=== PATIENT | female | born 1995 | race Caucasian/White ===

== ENCOUNTER 2016-07-28 21:05 | Emergency (ER) | payer OTHER ==
[~2016-07-28] VITALS: Ht 162.6 cm; Wt 60.5 kg
[2016-07-28 21:07] VITALS: Ht 162.6 cm; Wt 60.5 kg
[2016-07-29] MEDS ORDERED: IBUP-1542 PO (00:27)
[2016-07-29] MEDS ORDERED: HYDR-906 PO (00:27)
[2016-07-29] MEDS ORDERED: BACL10TA PO (00:28)
--- NOTE | 2016-07-29 00:34 | ERD ---
ER Documentation Chief Complaint Date/Time DATE: 07/29/16 TIME: 00:28 Chief Complaint RT LOWER BACK PAIN SHOOTING DOWN RIGHT LEG/NUMBNESS SINCE WEEKEND HPI Patient is a 21-year-old female who presents to the emergency department with right lower back pain radiating down her right leg. She says her symptoms started approximately one week ago but became worse over the past 2 days. Patient is a pain to be sharp, stabbing and shooting down her leg. Patient states her current pain level is a 10 out of 10. Patient states she tried ibuprofen with alleviation of symptoms. She denies any numbness or tingling in her groin area, urinary incontinence, stool incontinence, night pain or IV drug use. Patient denies any trauma or falls. Patient denies any abdominal pain, pelvic pain, pain with urination, vaginal discharge, vaginal bleeding. Patient is able to ambulate without any difficulty. Last menstrual period was on , patient reports irregular periods. ROS All systems reviewed and are negative except as per history of present illness. Medications Home Meds Active Scripts Baclofen* (Baclofen*) 10 Mg Tablet, 10 MG PO Q8, #12 TAB Prov:DEBORAH TENORIO PA-C 07/29/16 Ibuprofen* (Motrin*) 600 Mg Tab, 600 MG PO Q6, #20 TAB Prov:DEBORAH TENORIO PA-C 07/29/16 Hydrocodone/Acetaminophen (Dover 5-325 Tablet) 1 Each Tablet, 1 TAB PO Q6H Y for PAIN, #10 TAB Prov:DEBORAH TENORIO PA-C 07/29/16 PMhx/Soc Medical and Surgical Hx: pt denies Medical Hx, pt denies Surgical Hx History of Surgery: No Anesthesia Reaction: No Hx Neurological Disorder: No Hx Respiratory Disorders: No Hx Cardiac Disorders: No Hx Psychiatric Problems: No Hx Miscellaneous Medical Probl: No Hx Alcohol Use: Yes (occasional) Hx Substance Use: No Hx Tobacco Use: No Smoking Status: Never smoker Physical Exam Vitals Vital Signs Date Time Temp Pulse Resp B/P Pulse Ox O2 Delivery O2 Flow Rate FiO2 07/29/16 00:42 79 16 137/63 98 Room Air 07/28/16 21:07 97.7 95 18 145/74 96 Physical Exam GENERAL: Well-developed, well-nourished female. Appears in no acute distress. HEAD: Normocephalic, atraumatic. EYES: Pupils are equally reactive bilaterally. EOMs grossly intact. No conjunctival erythema. ENT: Moist mucous membranes. No uvula deviation. No kissing tonsils. NECK: Supple. No lymphadenopathy or thyromegaly. No meningismus. LUNG: Clear to auscultation bilaterally. No rhonchi, wheezing, rales or coarse breath sounds. HEART: Regular rate and rhythm. No murmurs, rubs or gallops. ABDOMEN: No scars, ecchymosis or rashes noted. Soft, nontender, and nondistended. Positive bowel sounds in all four quadrants. No rebound tenderness , no guarding. (-) McBurneys point tenderness. No CVA tenderness. BACK: No midline tenderness. Positive tenderness to palpation of right lumbar paraspinal muscles. Positive straight leg test of right leg. Normal active range of motion of back. EXTREMITIES: Equal pulses bilaterally. No peripheral clubbing, cyanosis or edema. No unilateral leg swelling. NEUROLOGIC: Alert and oriented. Moving all four extremities without any difficulty. Normal speech. Steady gait. SKIN: Normal color. Warm and dry. No rashes or lesions. Procedures/MDM MEDICAL DECISION MAKING: This is a 21-year-old female who presents with right lower back pain radiating down her leg. Patient described the pain to be sharp, stabbing, shooting.. Vital signs were reviewed. Patient was afebrile. Patient denied any saddle anesthesia, urinary incontinence, bowel incontinence, night pain or recent trauma. Given these findings, the patients presentation is most consistent with sciatica. Given that the patient had no history of falls or trauma, x-ray imaging was not obtained. I have a much lower clinical concern for cauda equine syndrome, spinal fractures, epidural abscess, spinal metastases, osteomyelitis, pyelonephritis or nephrolithiasis. I advised the patient that she may need to have an MRI if her symptoms persist. She may need to see her PCP for referral to cnc specialist and/or for MRI. PRESCRIPTIONS: Ibuprofen, [place], Baclofen. DISCHARGE: At this time, patient is stable for discharge and outpatient management. RICE therapy and ROM exercises were advised to avoid stiffness. I have instructed the patient to follow-up with his/her primary care physician in 1-2 days. I have discussed with the patient the possibility of needing to see an cnc specialist for further workup and imaging if the pain persists. I have instructed the patient to promptly return to the ER for any new or worsening symptoms including increased pain, swelling, warmth, urinary incontinence, stool incontinence, weakness or numbness. The patient and/or family expressed understanding of and agreement with this plan. All questions were answered. Home care instructions were provided. Departure Diagnosis: Primary Impression: Lower back pain Chronicity: acute Back pain laterality: right Sciatica presence: with sciatica Sciatica laterality: sciatica of right side Qualified Code: M54.41 - Acute right-sided low back pain with right-sided sciatica Condition: Stable Patient Instructions: Back Exercises, Lumbar, Back Pain W/ Sciatica Referrals: COMMUNITY CLINICS YOU HAVE RECEIVED A MEDICAL SCREENING EXAM AND THE RESULTS INDICATE THAT YOU DO NOT HAVE A CONDITION THAT REQUIRES URGENT TREATMENT IN THE EMERGENCY DEPARTMENT. FURTHER EVALUATION AND TREATMENT OF YOUR CONDITION CAN WAIT UNTIL YOU ARE SEEN IN YOUR DOCTORS OFFICE WITHIN THE NEXT 1-2 DAYS. IT IS YOUR RESPONSIBILITY TO MAKE AN APPOINTMENT FOR FOLOW-UP CARE. IF YOU HAVE A PRIMARY DOCTOR --you should call your primary doctor and schedule an appointment IF YOU DO NOT HAVE A PRIMARY DOCTOR YOU CAN CALL OUR PHYSICIAN REFERRAL HOTLINE AT IF YOU CAN NOT AFFORD TO SEE A PHYSICIAN YOU CAN CHOSE FROM THE FOLLOWING [facility] [address] [facility]. [facility] [address] [facility]. [facility] [address] [facility] [facility] [address] [facility] [facility] [address] [facility]. [facility]. [address] [facility]. [facility] YOU HAVE RECEIVED A MEDICAL SCREENING EXAM AND THE RESULTS INDICATE THAT YOU DO NOT HAVE A CONDITION THAT REQUIRES URGENT TREATMENT IN THE EMERGENCY DEPARTMENT. FURTHER EVALUATION AND TREATMENT OF YOUR CONDITION CAN WAIT UNTIL YOU ARE SEEN IN YOUR DOCTORS OFFICE WITHIN THE NEXT 1-2 DAYS. IT IS YOUR RESPONSIBILITY TO MAKE AN APPOINTMENT FOR FOLOW-UP CARE. IF YOU HAVE A PRIMARY DOCTOR --you should call your primary doctor and schedule and appointment IF YOU DO NOT HAVE A PRIMARY DOCTOR YOU CAN CALL OUR PHYSICIAN REFERRAL HOTLINE AT . IF YOU CAN NOT AFFORD TO SEE A PHYSICIAN YOU CAN CHOSE FROM THE FOLLOWING [facility] INSTITUTIONS: [facility] [address] [place] [address] [facility] [address] [place] [address] [facility] [address] [place] [address] [facility] Hours: Mon-Fri 9:00 AM - 5:00 PM Additional Instructions: Call your primary care doctor TOMORROW for an appointment during the next 1-2 days.See the doctor sooner or return here if your condition worsens before your appointment time. Range of motion exercises advised. Avoid strenuous activity. If pain persists patient will need to see an cnc specialist for further management of her symptoms. DEBORAH TENORIO PA-C Jul 29, 2016 00:34
[2016-07-29 00:42] VITALS: BP 137/63; PULSE 79; RESP 16
== END 2016-07-29 00:43 | disposition home or self-care (01) ==
LOC: FTE 21:05
DX: M54.41 Lumbago with sciatica, right side (principal)
CPT/HCPCS: 99284